=== PATIENT | female | born 1985 | race Caucasian/White ===

== ENCOUNTER 2019-02-06 13:41 | Emergency (ER) | payer OTHER ==
[~2019-02-06] VITALS: Ht 162.6 cm; Wt 64.0 kg
[2019-02-06 13:48] VITALS: BP 122/60; PULSE 113; RESP 18; Ht 162.6 cm; Wt 64.0 kg
[2019-02-06] MEDS ORDERED: AMOX500C2 PO (14:30)
[2019-02-06] MEDS ORDERED: IBUP-1542 PO (14:30)
--- NOTE | 2019-02-06 14:32 | ERD ---
ER Documentation Chief Complaint Chief Complaint Sorethroat fever & bouts of forgetfullness recently HPI 33-year-old female presents with 4-day history of fever and sore throat. She denies cough, vomiting, abdominal pain, urinary complaints. She has additional complaint of intermittent inability to remember events. She denies any confusion or getting lost or disorientation according to partner. She denies headaches, weakness, deficits. ROS All systems reviewed and are negative except as per history of present illness. Medications Home Meds Active Scripts Ibuprofen* (Motrin*) 600 Mg Tab, 600 MG PO Q6, #15 TAB Prov:SYLVIA PATEL MD 02/06/19 Amoxicillin* (Amoxicillin*) 500 Mg Cap, 500 MG PO TID for 10 Days, #30 CAP Prov:SYLIVA PATEL MD 02/06/19 Allergies Allergies: Coded Allergies: No Known Allergy (Unverified , 02/06/19) PMhx/Soc Medical and Surgical Hx: pt denies Medical Hx, pt denies Surgical Hx Hx Alcohol Use: No Hx Substance Use: No Hx Tobacco Use: No Smoking Status: Never smoker FmHx Family History: No diabetes, No coronary disease, No other Physical Exam Vitals Vital Signs Date Temp Pulse Resp B/P (MAP) Pulse Ox O2 O2 Flow FiO2 Time Delivery Rate 02/06/19 100.4 14:35 02/06/19 100.4 113 18 122/60 99 13:48 (80) Physical Exam Const: No acute distress alert and oriented. [id number]. Head: Atraumatic Eyes: Normal Conjunctiva ENT: Normal External Ears, Nose and Mouth. Was normal. Erythema the posterior oropharynx. Tonsils 2+. Airway patent. Neck: Full range of motion. No meningismus. Resp: Clear to auscultation bilaterally Cardio: Regular rate and rhythm, no murmurs Abd: Soft, non tender, non distended. Normal bowel sounds Skin: No petechiae or rashes Back: No midline or flank tenderness Ext: No cyanosis, or edema Neur: Awake and alert gait. No appreciable focal neurologic deficits. Psych: Normal Mood and Affect Results 24 hrs Current Medications Medications Dose Sig/Kvng Start Time Status Last (Trade) Ordered Route PRN Stop Time Admin Dose Reason Admin Ibuprofen 600 mg ONCE ONCE 02/06/19 DC 02/06/19 (Motrin) PO 14:30 02/06/19 14:35 14:31 Procedures/MDM Patient presents with signs of low-grade temperature and sore throat for last 3 days. No signs of abscess, airway obstruction, severe sepsis, additional concerning signs or symptoms. Patient is requesting treated with antibiotics given duration of patient request we will treat with amoxicillin, ibuprofen. Patient is well-appearing no evidence of disorientation, neurologic deficit. This may be normal stress related short-term memory loss and a healthy adult. I am recommending primary care follow-up with neurology evaluation for persistent worsening symptoms. She is otherwise well-appearing without danger to self or danger to others or findings distress concerning signs or symptoms. Denies homicidal or suicidal ideations. The patient was stable with no new complaints during the ER course. Clinically, there is no current evidence to suggest meningitis, sepsis, acute abdomen, pneumonia, stroke, acute coronary syndrome, pulmonary embolism, aortic dissection or any other emergent condition appearing to require further evaluation or hospitalization. Patient counseled regarding my diagnostic impression and care plan. Prior to discharge all questions answered. Pt agrees with treatment plan and understands strict return precautions. Pt is instructed to follow up with primary care provider within 24- 48 hours. Precautionary instructions provided including instructions to return to the ER if not improving or for any worsening or changing symptoms or concerns. Disclaimer: Inadvertent spelling and grammatical errors are likely due to EHR/dictation software use and do not reflect on the overall quality of patient care. Also, please note that the electronic time recorded on this note does not necessarily reflect the actual time of the patient encounter. Departure Diagnosis: Primary Impression: Sore throat Additional Impression: Fever Fever type: unspecified Qualified Codes: R50.9 - Fever, unspecified Condition: Stable Patient Instructions: Fever Control (Adult), Pharyngitis, Strep (Presumed) Additional Instructions: Recheck for new worsening symptoms with primary care doctor. Recommend primary care possibly neurologist for memory issues. Recheck otherwise for chest pain, shortness of breath, vomiting or abdominal pain, new or worsening symptoms. SYLVIA PATEL MD Feb 06, 2019 14:32
[2019-02-06] MEDS: IBUPROFEN 600 MG TAB PO ONE ×2 (14:35→14:43)
[2019-02-06] MEDS ORDERED: IBUPROFEN LIQUID (PED) 20 MG/ML CUP PO STA (14:38)
[2019-02-06] MEDS ORDERED: AMOX250S4 PO (14:39)
[2019-02-06] MEDS ORDERED: MOTS PO (14:39)
== END 2019-02-06 14:48 | disposition home or self-care (01) ==
LOC: FTE 13:41
DX: J02.9 Acute pharyngitis, unspecified (principal)
CPT/HCPCS: Z7502; Z7610; 99283